=== PATIENT | female | born 1995 | race Two or more races ===

== ENCOUNTER 2018-07-02 13:05 | Emergency (ER) | payer OTHER ==
[2018-07-02 13:12] VITALS: BP 148/105
[2018-07-02] MEDS ORDERED: HYDROCODONE/APAP 5/325 TAB PO ONE (13:27)
--- NOTE | 2018-07-02 13:28 | EDPHY ---
H & P Stated Complaint: crush inj at work l thumb Time Seen by Provider: 07/02/18 13:21 HPI/ROS: CHIEF COMPLAINT: Left thumb pain HISTORY OF PRESENT ILLNESS: The patient is a 22-year-old female Bahamian speaker who comes to the emergency department complaining of pain to her left thumb. She states that she got a crushed in between a lift and a pipe at work. It was crushed for 2-3 seconds until she was able to release the pressure. The pain is primarily in the MCP joint of her left thumb. She has pain with movement. Normal sensation distally and normal capillary refill. No wrist forearm or elbow pain. No abrasion or laceration. No other injuries. This happened about 20 min ago. Severity: Severe Modifying factors: None REVIEW OF SYSTEMS: Constitutional: denies: chills, fever, recent illness, recent injury EENTM: denies: blurred vision, double vision, nose congestion Respiratory: denies: cough, shortness of breath Cardiac: denies: chest pain, irregular heart rate, lightheadedness, palpitations Gastrointestinal/Abdominal: denies: abdominal pain, diarrhea, nausea, vomiting, blood streaked stools Genitourinary: denies: dysuria, frequency, hematuria, pain Musculoskeletal: See HPI Skin: denies: lesions, rash, jaundice, bruising Neurological: denies: headache, numbness, paresthesia, tingling, dizziness, weakness Hematologic/Lymphatic: denies: blood clots, easy bleeding, easy bruising Immunologic/allergic: denies: HIV/AIDS, transplant 10 systems reviewed and negative except as noted EXAM: GENERAL: Well-appearing, well-nourished and in no acute distress. HEAD: Atraumatic, normocephalic. EYES: Pupils equal round and reactive to light, extraocular movements intact, sclera anicteric, conjunctiva are normal. ENT: TMs normal, nares patent, oropharynx clear without exudates. Moist mucous membranes. NECK: Normal range of motion, supple without lymphadenopathy or JVD. LUNGS: Breath sounds clear to auscultation bilaterally and equal. No wheezes rales or rhonchi. HEART: Regular rate and rhythm without murmurs, rubs or gallops. ABDOMEN: Soft, nontender, normoactive bowel sounds. No guarding, no rebound. No masses appreciated. BACK: No CVA tenderness, no spinal tenderness, step-offs or deformities EXTREMITIES: See HPI and diagram. NEUROLOGICAL: Cranial nerves II through XII grossly intact. Normal speech, normal gait. 5/5 strength, normal movement in all extremities, normal sensation , normal reflexes PSYCH: Normal mood, normal affect. SKIN: Warm, dry, normal turgor, no visible rashes or lesions. Source: Patient Exam Limitations: No limitations - Personal History LMP (Females 10-55): Now Current Tetanus Diphtheria and Acellular Pertussis (TDAP): No - Medical/Surgical History Hx Asthma: No Hx Chronic Respiratory Disease: No Hx Diabetes: No Hx Cardiac Disease: No Hx Renal Disease: No Hx Cirrhosis: No Hx Alcoholism: No Hx HIV/AIDS: No Hx Splenectomy or Spleen Trauma: No Other PMH: denies - Family History Significant Family History: No pertinent family hx - Social History Smoking Status: Never smoked Alcohol Use: None Drug Use: None Constitutional: Initial Vital Signs Temperature (C) 37 C 07/02/18 13:09 Heart Rate 80 07/02/18 13:09 Respiratory Rate 17 07/02/18 13:09 Blood Pressure 148/105 H 07/02/18 13:09 O2 Sat (%) 100 07/02/18 13:09 O2 Delivery Mode Room Air Allergies/Adverse Reactions: No Known Allergies Allergy (Unverified 07/02/18 13:09) Home Medications: Medication Instructions Recorded Control Implant 07/02/18 ED Images - Extremities Hands Back Left/Right: 1 - Pain, mild swelling, limited range of motion Medical Decision Making - Diagnostics Imaging: Discussed imaging studies w/ physically impaired teacher Radiologist ED Course/Re-evaluation: Patient's x-rays reassuring. With more effort she does have range of motion. No palpable laxity. Will place in thumb Velcro splint for comfort to use as needed. Will have her follow up with Hand surgery if needed. Differential Diagnosis: Partial list of the Differential diagnosis considered include but were not limited to; contusion, fracture and although unlikely based on the history and physical exam, I also considered vascular injury, tendon injury, compartment syndrome. I discussed these differential diagnoses and the plan with the patient as well as the usual and expected course. The patient understands that the diagnosis is provisional and that in medicine we are not always correct and that further workup is often warranted. Usual and customary warnings were given. All of the patient's questions were answered. The patient was instructed to return to the emergency department should the symptoms at all worsen or return, otherwise to followup with the physician as we discussed. - Data Points Medications Given: Discontinued Medications Hydrocodone Bitart/Acetaminophen ([place] 5/325) 2 tab PO EDNOW ONE Stop: 07/02/18 13:28 Last Admin: 07/02/18 13:30 Dose: 2 tab Departure - Departure Disposition: Home, Routine, Self-Care Clinical Impression: Crushing injury of hand, left Condition: Fair Instructions: Crush Injury (ED) Additional Instructions: A follow-up with the hand surgeon if your pain is not improving in 1 week. Return to work as able. Seguimiento con el cirujano de la tejal si el dolor no mejora en kamilah semana, Regrese a trabajar hermelinda pueda. Referrals: NONE *PRIMARY CARE P,. [Primary Care Provider] - As per Instructions Dre Salazar MD [Medical Doctor] - 5-7 days, if not improved Stand Alone Forms: Work Limited Duty Print Language: Bahamian
== END 2018-07-02 14:13 | disposition home or self-care (01) ==
DX: S67.02XA Crushing injury of left thumb, initial encounter (principal); W23.1XXA Caught, crushed, jammed, or pinched between stationary objects, initial encounter; Y92.89 Other specified places as the place of occurrence of the external cause; Y99.0 Civilian activity done for income or pay; Y93.89 Activity, other specified